=== PATIENT | female | born 1990 | race Two or more races ===

== ENCOUNTER 2018-05-13 23:21 | Emergency (ER) | payer OTHER ==
[~2018-05-13] VITALS: Ht 160 cm; Wt 62.6 kg
[2018-05-13 23:37] VITALS: BP 115/79
[2018-05-14 00:08] LABS: BASOPHILS % (AUTO) 1.1 % (0.0-2.0); EOSINOPHILS % (AUTO) 1.6 % (0.0-3.0); HEMOGLOBIN 13.1 G/DL (12.0-16.0); LYMPHOCYTES % (AUTO) 43.7 % (20.0-45.0); MEAN CORPUSCULAR VOLUME 88 FL (80-99); MONOCYTES % (AUTO) 6.1 % (1.0-10.0); NEUTROPHILS % (AUTO) 47.5 % (45.0-75.0); PLATELET COUNT 288 K/UL (150-450); RED BLOOD COUNT 4.45 M/UL (4.20-5.40); RED CELL DISTRIBUTION WIDTH 11.3 % (11.6-14.8); WHITE BLOOD COUNT 5.8 K/UL (4.8-10.8)
[2018-05-14 00:15] LABS: ANION GAP 9 mmol/L (5-15); BLOOD UREA NITROGEN 13 mg/dL (7-18); CALCIUM 9.1 MG/DL (8.5-10.1); CARBON DIOXIDE 26 MMOL/L (21-32); CHLORIDE 103 MMOL/L (98-107); CREATININE 0.7 MG/DL (0.55-1.30); POTASSIUM 3.4 MMOL/L (3.5-5.1); SODIUM 138 MMOL/L (136-145)
[2018-05-14 00:19] LABS: ALANINE AMINOTRANSFERASE 31 U/L (12-78); ALBUMIN 3.9 G/DL (3.4-5.0); ALKALINE PHOSPHATASE 89 U/L (46-116); AMYLASE 127 U/L (25-115); ASPARTATE AMINO TRANSFERASE 21 U/L (15-37); BILIRUBIN,DIRECT < 0.1 MG/DL (0.0-0.3); BILIRUBIN,TOTAL 0.1 MG/DL (0.2-1.0)
[2018-05-14 00:30] VITALS: BP 108/72
--- NOTE | 2018-05-14 00:42 | Emergency Room Report ---
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 At approximate 10 PM she was throwing some linens/ trash into a bag and felt a prick on her left index finger Looking further patient saw a needle in the trash bag She also does sustained a needlestick Denies any fevers or chills denies any chest pain or shortness of breath denies any focal weakness or neuropathy Patient reports that she was told by supervisor drilling and shooting that there are no patient's with HIV at the facility Allergies: Coded Allergies: No Known Allergies (Unverified , 05/13/18) Patient History Past Medical History: see triage record Pertinent Family History: none Last Menstrual Period: still on Now: No Reviewed Nursing Documentation: PMH: Agreed; PSxH: Agreed Nursing Documentation-PMH Past Medical History: No Stated History Review of Systems All Other Systems: negative except mentioned in HPI Physical Exam Vital Signs Date Time Temp Pulse Resp B/P (MAP) Pulse Ox O2 Delivery O2 Flow Rate FiO2 05/13/18 23:26 98.6 83 16 115/79 99 Room Air 05/13/18 23:37 99 Sp02 EP Interpretation: reviewed, normal General Appearance: well appearing, no apparent distress Head: normocephalic, atraumatic Eyes: bilateral eye PERRL, bilateral eye EOMI ENT: hearing grossly normal, normal pharynx, TMs + canals normal, uvula midline Neck: full range of motion, supple, no meningismus, no bony tend Respiratory: lungs clear, normal breath sounds, no rhonchi, no respiratory distress, no retraction, no accessory muscle use Cardiovascular #1: normal peripheral pulses, regular rate, rhythm, no edema, no gallop, no JVD, no murmur Gastrointestinal: normal bowel sounds, non tender, soft, no mass, no organomegaly, non-distended, no guarding, no hernia, no pulsatile mass, no rebound Musculoskeletal: normal inspection Neurologic: oriented x3, responsive, carrier associate III-XII nml as tested, motor strength/ tone normal, sensory intact Psychiatric: mood/affect normal Skin: other - There is evidence on the palmar aspect proximally of the left index finger of a puncture type wound, no obvious surrounding hematoma or ecchymosis Lymphatic: normal inspection, no adenopathy Medical Decision Making Diagnostic Impression: Primary Impression: healthcare worker finger stick ER Course Patient has evidence of a healthcare worker needle stick Appropriate blood work are initially initiated and obtained We discussed possible postexposure prophylaxis however given the history and presentation this was deferred at this time And patient requires close outpatient Worker's Comp. clinic follow-up Last Vital Signs Date Time Temp Pulse Resp B/P (MAP) Pulse Ox O2 Delivery O2 Flow Rate FiO2 05/14/18 00:30 98.6 86 16 108/72 99 Room Air 99 Status: improved Disposition: HOME, SELF-CARE Condition: Stable Scripts Unable to Obtain Active Prescriptions or Reported Meds Referrals: NOT CHOSEN IPA/MD,REFERRING (PCP) Patient Instructions: Needle Stick Injury, [id number] Additional Instructions: Follow-up with your supervisor drilling and shooting for close workers comp clinic follow-up Sapphire Rivero DO May 14, 2018 00:42
== END 2018-05-14 00:32 | disposition home or self-care (01) ==
LOC: EMR 23:49
DX: S61.231A Puncture wound without foreign body of left index finger without damage to nail, initial encounter (principal); W46.0XXA Contact with hypodermic needle, initial encounter; Y92.89 Other specified places as the place of occurrence of the external cause; Y99.0 Civilian activity done for income or pay
CPT/HCPCS: 36415; 80069; 80076; 81025; 82150; 85025; 86703; 86803; 87517; 99283

== ENCOUNTER 2019-07-23 23:46 | Emergency (ER) | payer OTHER ==
[~2019-07-23] VITALS: Ht 160 cm; Wt 68.0 kg
[2019-07-24 00:05] VITALS: BP 117/81
--- NOTE | 2019-07-24 00:10 | NUR ---
ED Nurse Note: Patient walked in to ER c/o LT groin pain since 1600. 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 Pt stated 7/10 pinching pain. Pt AAO x4, VSS at this time.
--- NOTE | 2019-07-24 00:25 | NUR ---
ED Nurse Note: ERMD at bedside
[2019-07-24 01:00] VITALS: BP 116/83
[2019-07-24] MEDS ORDERED: TYLENOL EXTRA500 MG ORAL (01:11)
[2019-07-24 01:26] VITALS: BP 117/81
--- NOTE | 2019-07-24 01:26 | NUR ---
ED Nurse Note: Pt cleared by health care Provider for discharge. DC instructions/prescription was given and explained to pt and verbalized understanding of teachings. All medical deviecs such as ID band removed. Pt is AAO x4, ambulatory and left with all personal belongings.
--- NOTE | 2019-07-24 02:30 | Emergency Room Report ---
History of Present Illness General Chief Complaint: Lower Extremity Injury Source: Patient Present Illness HPI 28-year-old female presents ED for evaluation. 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 Happened earlier today. Pain is dull, 5 out of 10, nonradiating. Worse with walking. Denies any other injuries. No other aggravating relieving factors. Denies any other associated symptoms Allergies: Coded Allergies: No Known Allergies (Unverified , 05/13/18) Patient History Past Medical History: none Past Surgical History: none Pertinent Family History: none Social History: Denies: smoking, alcohol use, drug use Last Menstrual Period: 06/2019 Now: No Immunizations: UTD Reviewed Nursing Documentation: PMH: Agreed; PSxH: Agreed Nursing Documentation-PMH Past Medical History: No Stated History Review of Systems All Other Systems: negative except mentioned in HPI Physical Exam Vital Signs Date Time Temp Pulse Resp B/P (MAP) Pulse Ox O2 Delivery O2 Flow Rate FiO2 07/23/19 23:57 98.6 90 16 117/81 (93) 100 Sp02 EP Interpretation: reviewed, normal General Appearance: no apparent distress, alert, GCS 15, non-toxic Head: normocephalic Eyes: bilateral eye normal inspection, bilateral eye PERRL ENT: normal ENT inspection Neck: normal inspection Respiratory: normal inspection Cardiovascular #1: normal inspection Gastrointestinal: normal inspection Rectal: deferred Genitourinary: no CVA tenderness Musculoskeletal: back normal, normal range of motion, gait/station normal, tender - TTP L inguinal area. full ROM noted Neurologic: alert, motor strength/tone normal, oriented x3, sensory intact, responsive, speech normal Psychiatric: normal inspection Skin: no rash Lymphatic: normal inspection Medical Decision Making Diagnostic Impression: Primary Impression: Hip strain Qualified Codes: S76.012A - Strain of muscle, fascia and tendon of left hip, initial encounter ER Course Hospital Course 28-year-old female presents to ED complaining of L hip pain after lifting person Differential diagnoses include: Fracture, dislocation, sprain, contusion, bursitis Clinical course Patient placed on stretcher. After initial history, physical exam reveals a female in no acute distress. On exam there is some pain in the left inguinal region. Full range of motion. Normal internal or external rotation noted. No sign of hernia. I discussed findings with patient. Likely hip flexor strain. Do not believe imaging required at this time. Patient declined pain meds here. Safe for discharge with close outpatient follow-up Diagnosis - hip strain stable and discharged to home with prescription for tylenol. Followup with PMD. Return to ED if symptoms recur or worsen Last Vital Signs Date Time Temp Pulse Resp B/P (MAP) Pulse Ox O2 Delivery O2 Flow Rate FiO2 07/23/19 23:57 98.6 90 16 117/81 (93) 100 Status: improved Disposition: HOME, SELF-CARE Condition: Stable Scripts Acetaminophen* (TYLENOL EXTRA STRENGTH*) 500 Mg Tablet 500 MG ORAL Q8H PRN for Prn Headache/Temp > 101, #30 TAB 0 Refills Prov: Silvio Bryan MD 07/24/19 [facility]: [facility] 24 hour /7 days a week by Appointment Only [address] [facility] [id number] Departure Forms: Return to Work Return to Work Date: Jul 26, 2019 Work Restrictions: No Heavy Lifting Patient Instructions: Muscle Strain, [id number] Silvio Bryan MD Jul 24, 2019 02:30
== END 2019-07-24 01:26 | disposition home or self-care (01) ==
LOC: EMR 07-24 00:50
DX: S76.012A Strain of muscle, fascia and tendon of left hip, initial encounter (principal); X50.0XXA Overexertion from strenuous movement or load, initial encounter; Y92.9 Unspecified place or not applicable
CPT/HCPCS: 99282